=== PATIENT | female | born 1945 | race Caucasian/White ===

== ENCOUNTER 2019-02-05 13:03 | Emergency (ER) | payer MEDICARE, BC ==
[2019-02-05 13:10] VITALS: RESP 18; TEMP 97.1
[2019-02-05] MEDS ORDERED: ONDANSETRON HCL 4 MG/2 ML SOL IV ONE (13:26)
[2019-02-05] MEDS ORDERED: SODIUM CHLORIDE 0.9% 1000ML 1,000 ML IV ONE (13:26)
[2019-02-05] MEDS ORDERED: ONDANSETRON HCL 4 MG/2 ML SOL ONE (13:34)
[2019-02-05 15:58] VITALS: BP 166/91; PULSE 78; O2SAT 96
== END 2019-02-05 15:45 | disposition home or self-care (01) | DRG 392 ==
LOC: ED 13:03
DX: K52.9 Noninfective gastroenteritis and colitis, unspecified (principal); R19.7 Diarrhea, unspecified
CPT/HCPCS: 96365; 96374; 99282; 99283; J2405